=== PATIENT | male | born 1970 | race Caucasian/White ===

== ENCOUNTER 2020-04-01 17:51 | Emergency (ER) | payer OTHER ==
[~2020-04-01] VITALS: Ht 177.8 cm; Wt 81.6 kg
--- NOTE | 2020-04-01 18:00 | NUR ---
ARRIVAL PT ARRIVED TO ED WITH C/O INJURY TO HIS LEFT FOOT AFTER A TV FELL ON IT. NO BRUISING OR REDNESS NOTED. PT AMBULATED TO ROOM. BEDSIDE MONITORS APPLIED. VITAL SIGNS STABLE. BED IN LOW LOCKED POSITION, SPOUSE AT BEDSIDE.
[2020-04-01 18:08] VITALS: BP 113/74
[2020-04-01 18:12] VITALS: BP 113/74
[2020-04-01] MEDS ORDERED: TORADOL ONE (18:14)
[2020-04-01] MEDS ORDERED: TORADOL IM STA (18:15)
[2020-04-01] MEDS ORDERED: NORCO 10MG PO ONE (18:17)
--- NOTE | 2020-04-01 18:20 | ER.PDOC ---
General Chief Complaint: Extremities Stated Complaint: INJURED LEFT FOOT Time seen by MD: 18:00 Source: patient Exam Limitations: no limitations History of Present Illness Onset: yesterday Where: home Severity: moderate Context: crush Associated Symptoms: swelling Modifying Factors: pain on movement Allergies: Coded Allergies: No Known Allergies (Unverified , 07/27/19) Past Medical History Medical History: no pertinent history Surgical History: appendectomy Social History Alcohol Use: rarely Drug Use: marijuana Reviewed Nursing Reviewed: Vital Signs, Abn. Noted Review of Systems All Other Systems: Reviewed and Negative Physical Exam General Appearance: Alert, No Apparent Distress Foot: tenderness, swelling, erythema, limited ROM 1 - TENDERNESS Gait: antalgic gait Neuro: sensation nml, motor nml Vascular: no vascular compromise Tendons: tendon function nml Leg/Knee/Thigh: uninjured above ankle Skin: warm/dry Head/ENT: nml inspection, pharynx nml Neck/Back: nml inspection, non-tender Resp/CVS: no resp distress Abdomen: non-tender, no organomegaly Splinting Splinting : Pre-Made Type: velcro Hand-Made Type: Results/Orders Results/Orders Orders - TA ROSEN MD Ketorolac Tromethamine (Toradol) (04/01/20 18:14) Hydrocodone/Acetaminophen ([place] 10mg) (04/01/20 18:17) Ketorolac Tromethamine (Toradol) (04/01/20 18:15) Xr Foot Lt (04/01/20 18:15) Hydrocodone/Acetaminophen ([place] 10mg) (04/01/20 18:21) Vital Signs Date Time Temp Pulse Resp B/P (MAP) Pulse Ox O2 Delivery O2 Flow Rate FiO2 04/01/20 18:12 98.1 74 16 113/74 (87) 97 Room Air 04/01/20 18:08 98.1 74 16 97 04/01/20 18:08 98.1 74 16 04/01/20 18:08 98.1 74 16 113/74 (87) 97 Room Air Administered Medications Medications (Trade) Dose Ordered Sig/Itzel Route PRN Reason Start Time Stop Time Status Last Admin Dose Admin Acetaminophen/ Hydrocodone Bitart ([place] 10mg) 1 each TID STAT PO 04/01/20 18:21 04/01/20 18:23 DC 04/01/20 18:23 1 EACH Departure Time of Disposition: 19:00 Disposition: 01 HOME, SELF-CARE Impression: Primary Impression: Foot contusion Condition: Improved Referrals: PCP,UNKNOWN (PCP) PRIMARY CARE PROVIDER Duration or Time Spent with Pa: 20 M TA ROSEN MD Apr 01, 2020 18:20
[2020-04-01] MEDS ORDERED: NORCO 10MG PO STA (18:21)
--- NOTE | 2020-04-01 18:50 | DIREP ---
PROCEDURE:XRAY FOOT MIN 3 VWS-LT COMPARISON:None. 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 Normal variant bipartite medial sesamoid. Very subtle linear cortical density medial margin of the middle phalanx III at the PIP could represent a tiny avulsion fracture JOINTS:Normal. SOFT TISSUES:Normal. OTHER:No additional findings. CONCLUSION:Possible tiny avulsion fracture at the PIP III. DJD 1st MTP. Dictated by: Pat Coley MD on 04/01/2020 at 06:47 PM
== END 2020-04-01 19:14 | disposition home or self-care (01) ==
LOC: ER 17:51
DX: S90.32XA Contusion of left foot, initial encounter (principal); F12.10 Cannabis abuse, uncomplicated; W23.0XXA Caught, crushed, jammed, or pinched between moving objects, initial encounter; Y93.89 Activity, other specified; Y92.098 Other place in other non-institutional residence as the place of occurrence of the external cause; Y99.8 Other external cause status
CPT/HCPCS: 73630; 96372; 99283; J1885; 29125

== ENCOUNTER 2020-04-27 18:18 | Emergency (ER) | payer OTHER ==
[~2020-04-27] VITALS: Ht 177.8 cm; Wt 77.1 kg
[2020-04-27 18:56] VITALS: BP 119/60
[2020-04-27 19:03] VITALS: BP 119/60
[2020-04-27] MEDS ORDERED: TORADOL ONE (19:35)
[2020-04-27] MEDS ORDERED: TORADOL IV STA (19:42)
[2020-04-27 19:55] LABS: BASOPHIL # 0.1 10^3/uL (0.0-0.1); BASOPHIL % 0.4 % (0.0-0.2); EOSINOPHIL # 0.2 10^3/uL (0.0-0.2); EOSINOPHIL % 1.3 % (0.0-5.0); LYMPHOCYTES # 1.83 10^3/uL1 (1.0-4.8); LYMPHOCYTES % 15.6 % (24.0-44.0); MEAN CORP HGB 30.8 pg (26-34); MONOCYTES % 8.3 % (5.0-12.0); NEUTROPHIL # 8.7 10^3/uL (1.8-7.7); NEUTROPHILS % 74.2 % (41.0-85.0); PLATELET COUNT 258 10^3/uL (150-400)
[2020-04-27] MEDS ORDERED: MORPHINE SULFATE ONE (20:06)
[2020-04-27] MEDS ORDERED: MORPHINE SULFATE IV STA (20:10)
[2020-04-27 20:14] LABS: CALCIUM 8.6 mg/dL (8.4-10.5); CARBON DIOXIDE 25.7 mmol/L (20.0-32)
--- NOTE | 2020-04-27 20:18 | ER.PDOC ---
General Chief Complaint: Abdomen Pain Stated Complaint: ABD PAIN Time seen by MD: 19:30 Source: patient Exam Limitations: no limitations History of Present Illness Initial Comments Right lower quadrant abdominal pain for 3 days. Archer a pop after lifting stuff. No nausea or vomiting, no fever or chills. Severity/Quality: moderate, sharpness Radiation: groin (right) Associated Symptoms: denies symptoms Exacerbated by: nothing Relieved By: nothing Allergies: Coded Allergies: No Known Allergies (Unverified , 07/27/19) Vital Signs First Vital Signs Date Time Temp Pulse Resp B/P (MAP) Pulse Ox O2 Delivery O2 Flow Rate FiO2 04/27/20 18:56 98.6 98 16 94 04/27/20 18:56 119/60 (79) Last Vital Signs Date Time Temp Pulse Resp B/P (MAP) Pulse Ox O2 Delivery O2 Flow Rate FiO2 04/27/20 19:03 98.6 98 16 04/27/20 18:56 119/60 (79) 94 Past Medical History Medical History: no pertinent history Surgical History: appendectomy Social History Alcohol Use: rarely Drug Use: none Constitutional: no symptoms reported Respiratory: no symptoms reported Cardiovascular: no symptoms reported Gastrointestinal: see HPI Genitourinary: no symptoms reported All Other Systems: Reviewed and Negative Physical Exam General Appearance: No Apparent Distress, WD/WN Neck: Non-Tender, Full Range of Motion, Supple, Normal Inspection Respiratory: chest non-tender, lungs clear, normal breath sounds, no respiratory distress, no accessory muscle use Cardiovascular: Normal Peripheral Pulses, Regular Rate, Rhythm, No Edema, No Gallop, No JVD, No Murmur Gastrointestinal: Normal Bowel Sounds, No Organomegaly, No Pulsatile Mass, Tenderness (RLQ) Back: Normal Inspection, No CVA Tenderness, No Vertebral Tenderness Extremities: Normal Range of Motion, Non-Tender, Normal Inspection, No Pedal Edema, No Calf Tenderness, Normal Capillary Refill, Pelvis Stable Neurologic/Psychiatric: developmental services worker II-XII NML as Tested, No Motor/Sensory Deficits, Alert, Normal Mood/Affect, Oriented x 3 Skin: Normal Color, Warm/Dry Lymphatic: No Adenopathy Results/Orders Results/Orders Orders - ALBARO ESTEVES MD Ketorolac Tromethamine (Toradol) (04/27/20 19:35) Cbc With Auto Diff (04/27/20 19:42) Comprehensive Metabolic Panel (04/27/20 19:42) Lipase (04/27/20 19:42) PT (04/27/20 19:42) Ct Abd/Pel With Iv Contrast (04/27/20 19:42) Partial Thromboplastin Time. (04/27/20 19:42) Urinalysis (04/27/20 19:42) Ketorolac Tromethamine (Toradol) (04/27/20 19:42) Morphine Sulfate (Morphine Sulfate) (04/27/20 20:06) Vital Signs Date Time Temp Pulse Resp B/P (MAP) Pulse Ox O2 Delivery O2 Flow Rate FiO2 04/27/20 19:03 98.6 98 16 04/27/20 18:56 98.6 98 16 119/60 (79) 94 04/27/20 18:56 98.6 98 16 94 Administered Medications Medications (Trade) Dose Ordered Sig/Itzel Route PRN Reason Start Time Stop Time Status Last Admin Dose Admin Ketorolac Tromethamine (Toradol) 30 mg STAT STAT IV 04/27/20 19:42 04/27/20 19:43 DC 04/27/20 19:47 30 MG Laboratory Tests Test 04/27/20 18:51 White Blood Count 11.8 10^3/uL (4.5-11.0) H Red Blood Count 4.25 10^6/uL (4.50-5.90) L Hemoglobin 13.1 g/dL (13.9-16.3) L Hematocrit 38.3 % (37.0-53.0) Mean Corpuscular Volume 90.1 fL (78-100) Mean Corpuscular Hemoglobin 30.8 pg (26-34) Mean Corpuscular Hemoglobin Concent 34.2 g/dL (33-36.5) Red Cell Distribution Width 13.0 % (11.5-14.5) Platelet Count 258 10^3/uL (150-400) Mean Platelet Volume 10.9 fL (7.8-11.0) Neutrophils (%) (Auto) 74.2 % (41.0-85.0) Lymphocytes (%) (Auto) 15.6 % (24.0-44.0) L Monocytes (%) (Auto) 8.3 % (5.0-12.0) Neutrophils # (Auto) 8.7 10^3/uL (1.8-7.7) H Lymphocytes # (Auto) 1.83 10^3/uL1 (1.0-4.8) Monocytes # (Auto) 1.0 10^3/uL (0.3-0.8) H Absolute Immature Granulocyte (auto 0.02 10^3 u/L (0-2) Absolute Eosinophils (auto) 0.2 10^3/uL (0.0-0.2) Immature Granulocytes % 0.20 % (0.00-0.50) Eosinophils % 1.3 % (0.0-5.0) Basophils % 0.4 % (0.0-0.2) H Basophils # 0.1 10^3/uL (0.0-0.1) Progress Progress Patient was administered a Toradol shot. He kept demanding more pain medicine and I ordered Morphine. When the RN went to administer it, he refused, signed and left against medical advice. He understands that leaving AMA may result in worsening condition and . Departure Time of Disposition: 20:16 Disposition: 07 AGAINST MEDICAL ADVICE Impression: Primary Impression: Abdominal pain Condition: Against Medical Advice Referrals: PCP,UNKNOWN (PCP) PRIMARY CARE PROVIDER Duration or Time Spent with Pa: 30 min Problem Qualifiers Primary Impression: Abdominal pain Abdominal location: right lower quadrant Qualified Codes: R10.31 - Right lower quadrant pain LINN,ALBARO Jaramillo MD Apr 27, 2020 20:18
== END 2020-04-27 20:15 | disposition left against medical advice (07) ==
LOC: ER 18:18
DX: R10.31 Right lower quadrant pain (principal); Z90.49 Acquired absence of other specified parts of digestive tract; Z79.1 Long term (current) use of non-steroidal anti-inflammatories (NSAID)
CPT/HCPCS: 36415; 80053; 83690; 85025; 85610; 85730; 96374; 99283; J1885; J2270